=== PATIENT | female | born 1980 | race Caucasian/White ===

== ENCOUNTER 2016-07-29 03:35 | Inpatient (IN) | payer MEDICAID ==
[~2016-07-29] VITALS: Ht 160 cm; Wt 86.6 kg
[~2016-07-29 03:35] MED LIST: PRENATAL1 TA4
[2016-07-29] MEDS ORDERED: LACTATED RINGERS 1,000 ML IV SCH (04:59)
[2016-07-29] MEDS ORDERED: NALBUPHINE 10 MG/ML AMP IVP PRN (05:00)
--- NOTE | 2016-07-29 11:13 | NUR ---
PATIENT HAS BEEN SCREENED AND CATEGORIZED LOW NUTRITION RISK. PATIENT WILL BE SEEN WITHIN 7 DAYS OF ADMISSION. 08/04/[address]
[2016-07-29 11:30] VITALS: BP 132/72
[2016-07-29] MEDS ORDERED: BUPIVACAINE 0.125%/NS PREMIX 250 ML ONE (12:28)
[2016-07-29] MEDS ORDERED: OXYTOCIN 20 UNITS/LR PREMIX 1,000 ML IV SCH ×2 (12:50→14:56)
[2016-07-29] MEDS ORDERED: OXYTOCIN 10 UNITS/ML VIAL IM SCH (12:50)
[2016-07-29] MEDS ORDERED: OXYTOCIN 20 UNITS/LR PREMIX 1,000 ML IV ONE (12:58)
[2016-07-29] MEDS ORDERED: OXYTOCIN 10 UNITS/ML VIAL ONE (12:58)
[2016-07-29] MEDS ORDERED: BISACODYL 5 MG TABEC PO PRN (15:00)
[2016-07-29] MEDS ORDERED: BENZOCAINE/MENTHOL 20%-0.5% 60 GM CAN TP PRN (15:00)
[2016-07-29] MEDS ORDERED: MEASLES, MUMPS, AND RUBELLA 1 VIAL SQVAC PRN (15:00)
[2016-07-29] MEDS ORDERED: DOCUSATE SODIUM 100 MG GELCAP PO PRN (15:00)
[2016-07-29] MEDS ORDERED: WITCH HAZEL 40 PAD PACKAGE TP PRN (15:00)
[2016-07-30] MEDS: oxyCODONE/APAP 5/325 MG 1 TAB TAB PO PRN (08:46)
[2016-07-30] MEDS ORDERED: INFLUENZA VIRUS VACCINE QUAD 0.5 ML SYR IMVAC SCH (22:40)
[2016-07-31] MEDS: oxyCODONE/APAP 5/325 MG 1 TAB TAB PO PRN (02:44)
== END 2016-07-31 16:10 | disposition home or self-care (01) | DRG 560 ==
LOC: UNDOADMOB 03:35 → MFCC 03:35 → INTOOBSV 03:35 → OBSVTOIN 03:35 → MFCC 09:40 → MLD 09:40 → OBSVTOIN 11:12 → MLD 11:12 → MFCC 11:12 → MLD 20:18
PROVIDERS: ADMIT Obstetrics & Gynecology; ATTEND Obstetrics & Gynecology
PROC: 10E0XZZ Delivery of Products of Conception, External Approach (ICD-10-PCS; principal; 2016-07-29)
PROC: 0HQ9XZZ Repair Perineum Skin, External Approach (ICD-10-PCS; 2016-07-29)
PROC: 00HU33Z Insertion of Infusion Device into Spinal Canal, Percutaneous Approach (ICD-10-PCS; 2016-07-29)
PROC: 3E0R3CZ (ICD-10-PCS; 2016-07-29)
DX: O70.0 First degree perineal laceration during delivery (principal); O09.523 Supervision of elderly multigravida, third trimester; Z37.0 Single live birth; Z3A.38 38 weeks gestation of pregnancy